=== PATIENT | female | born 1955 | race Hispanic/Latino ===

== ENCOUNTER 2017-12-24 04:45 | Day surgery (SDC) | payer BC ==
[2017-12-23 11:29] VITALS: BP 134/75
[2017-12-23 12:19] LABS: BASOPHIL % 0.6 % (0.0-0.2); EOSINOPHIL # 0.3 10^3/uL (0.0-0.2); EOSINOPHIL % 4.4 % (0.0-5.0); HEMOGLOBIN 12.8 g/dL (12.0-15.0); LYMPHOCYTES # 2.1 10^3/uL (1.0-4.8); LYMPHOCYTES % 30.7 % (24.0-44.0); MEAN CELL HGB 28.8 pg (26-34); MEAN CELL HGB CONCENTRATION 32.7 g/dL (33-37); MEAN CORP VOLUME 88.1 fL (78-100); MEAN PLATELET VOLUME 12.7 fL (7.8-11.0); MONOCYTES # 0.6 10^3/uL (0.3-0.8); MONOCYTES % 8.3 % (5.0-12.0); NEUTROPHIL # 3.8 10^3/uL (1.8-7.7); NEUTROPHILS % 55.9 % (41.0-85.0); RED CELL DISTRIBUTION WIDTH 13.5 % (11.5-14.5); WHITE BLOOD CELL 6.9 10^3/uL (4.5-11.0)
[2017-12-23 12:39] LABS: CALCIUM 9.2 mg/dL (8.4-10.5); CARBON DIOXIDE 28.1 mmol/L (20.0-32)
--- NOTE | 2017-12-23 13:21 | PCM.EKG ---
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
[~2017-12-24] VITALS: Ht 162.3 cm; Wt 72.6 kg
[2017-12-24] VITALS (9 sets, daily range): BP systolic 107–146; BP diastolic 54–80
[~2017-12-24 04:45] MED LIST: ASPI-484 PO; LOSA1TAB19 PO; METF10002 PO; NS 1000ML 1,000 ML IV SCH
[2017-12-24] MEDS ORDERED: TORADOL ONE (08:06)
[2017-12-24] MEDS ORDERED: DECADRON ONE (08:06)
[2017-12-24] MEDS ORDERED: VERSED ONE (08:06)
[2017-12-24] MEDS ORDERED: ZOFRAN ONE (08:06)
[2017-12-24] MEDS ORDERED: DIPRIVAN IV ONE (08:06)
[2017-12-24] MEDS ORDERED: SUBLIMAZE ONE (08:06)
[2017-12-24] MEDS ORDERED: LIDOCAINE 2% VIAL ONE (08:07)
[2017-12-24] MEDS ORDERED: NS 3000ML IRR IR ONE (09:35)
[2017-12-24] MEDS ORDERED: SODIUM CHLORIDE IR ONE (09:35)
[2017-12-24] MEDS ORDERED: TRAM50TA PO (10:16)
[2017-12-24] MEDS ORDERED: CIPR500T86 PO (10:16)
[2017-12-24] MEDS ORDERED: NORCO 7.5MG PO PRN (10:30)
[2017-12-24] MEDS ORDERED: LACTATED RINGERS 1,000 ML IV SCH ×2 (10:30→11:00)
[2017-12-24] MEDS ORDERED: EPHEDRINE SULFATE ONE (10:40)
[2017-12-24] MEDS ORDERED: SUBLIMAZE IV PRN (11:00)
[2017-12-24] MEDS ORDERED: MORPHINE SULFATE IV PRN (11:00)
--- NOTE | 2017-12-24 11:07 | OPH ---
DATE OF SURGERY: 12/24/2017 PREOPERATIVE DIAGNOSIS: Calculus, right distal ureter with a ureteral stent. FINAL DIAGNOSIS: Calculus, right distal ureter with a ureteral stent. PROCEDURES: Cystoscopy, removal of right ureteral stent, right ureteroscopy with basket stone extraction. DESCRIPTION OF PROCEDURE: The patient was brought to the cystoscopy room, was put in supine position on the cystoscopy table. After the patient was given an LMA general anesthesia, the patient was placed in the lithotomy position. The genitalia was then prepped and draped aseptically in the usual manner. First, a 23-Bermudian cystoscope was inserted per urethra up to the bladder. With the use of the right angle lens, the bladder was visualized. There was some congestion noted. There was a stent noted in the right orifice which was then removed and replaced with a Glidewire. After this was done, the cystoscope was removed and a 7-Bermudian semirigid ureteroscope was inserted from the urethra to the bladder to the right ureteral orifice and was advanced all the way to the upper ureter. The ureter was then visualized and there was a stone noted in the right lower ureter. Basket stone extraction was then performed. After removal of the stone in the right lower ureter, the Glidewire was also removed and then the ureteroscope was removed and then a cystoscope was reinserted into the bladder and the bladder was emptied with fluid. After this was done, procedure was terminated. The patient was then awakened, was transferred to the recovery room in stable condition. Kishan Lema MD DR: [place]/chloe JOB# [id number]
--- NOTE | 2017-12-24 15:53 | DIREP ---
PROCEDURE:XRAY FLUOROSCOPY COMPARISON:None. INDICATIONS:RT RENAL CALCULI, 4 IMAGES, 23.02 mGy, 124.9 SECONDS FLUORO FINDINGS: FLUOROSCOPIC TIME (sec):124.9 NUMBER OF SPOT FILMS: 3 OTHER: Right ureteral stent. Biliary stent. CONCLUSION: 1. Fluoroscopic spot film(s) was/were obtained in the operating room. Please refer to the procedure note. Dictated by: Reno Guthrie M.D. on 12/24/2017 at 03:50 PM
== END 2017-12-24 12:00 | disposition home or self-care (01) | DRG 694 ==
LOC: SDC 04:45
PROVIDERS: ATTEND Urology
DX: N20.1 Calculus of ureter (principal); E11.9 Type 2 diabetes mellitus without complications; I10 Essential (primary) hypertension; Z98.890 Other specified postprocedural states; Z79.899 Other long term (current) drug therapy; E66.3 Overweight; Z68.27 Body mass index [BMI] 27.0-27.9, adult; Z90.49 Acquired absence of other specified parts of digestive tract
CPT/HCPCS: 36415 ×2; 52352; 76000; 80048; 82948; 85025; 85610; 85730; 93005; J1100; J1885; J2001; J2250; J2405; J3010; J3490 ×2; J7030 ×2; C1769